=== PATIENT | male | born 1990 | race Two or more races ===

== ENCOUNTER 2017-05-06 23:25 | Emergency (ER) | payer SELFPAY ==
[2017-05-07] MEDS: ONDANSETRON ODT 4 MG TAB.RAPDIS. PO (00:23)
[2017-05-07] MEDS: IBUPROFEN 600 MG TABLET. PO (00:23)
[2017-05-07] MEDS: DICYCLOMINE HCL 10 MG CAPSULE PO (00:23)
[2017-05-07] MEDS: FAMOTIDINE 20 MG TABLET. PO (00:23)
== END 2017-05-07 00:27 | disposition home or self-care (01) ==
LOC: ER 23:25
DX: R50.9 Fever, unspecified (principal); R05 Cough; R19.7 Diarrhea, unspecified; R11.0 Nausea; R10.84 Generalized abdominal pain
CPT/HCPCS: 99284; Q0162